=== PATIENT | female | born 1985 | race Two or more races ===

== ENCOUNTER 2019-03-07 19:28 | Emergency (ER) | payer OTHER ==
[~2019-03-07] VITALS: Ht 167.6 cm; Wt 54.4 kg
[~2019-03-07 19:28] MED LIST: CORGARD20 M1; KETO10TA2 PO; MEDROL4 MG
== END 2019-03-07 20:44 | disposition home or self-care (01) ==
LOC: ER 19:28
DX: L02.416 Cutaneous abscess of left lower limb (principal)

== ENCOUNTER 2019-05-03 10:14 | Emergency (ER) | payer OTHER ==
[~2019-05-03] VITALS: Ht 167.6 cm; Wt 54.4 kg
== END 2019-05-03 15:50 | disposition home or self-care (01) ==
LOC: ER 10:14
DX: B33.8 Other specified viral diseases (principal); B96.0 Mycoplasma pneumoniae [M. pneumoniae] as the cause of diseases classified elsewhere

== ENCOUNTER 2023-06-06 22:15 | Emergency (ER) | payer OTHER ==
[~2023-06-06] VITALS: Ht 167.6 cm; Wt 58.1 kg
[2023-06-06] MEDS ORDERED: HORIZANT300 MG (22:26)
[2023-06-06] MEDS ORDERED: KETOROLAC TROMETHAMINE 30 MG VIAL IM STA (22:57)
[2023-06-06] MEDS ORDERED: DEXAMETHASONE SODIUM PHOSPHATE 4 MG/ML VIAL IM STA (22:57)
[2023-06-06] MEDS ORDERED: 0.9 % SODIUM CHLORIDE 500 ML IV STA (23:48)
[2023-06-07 00:17] LABS: HEMATOCRIT 35.7 % (36.0-45.00); HEMOGLOBIN 12.1 g/dL (12.0-15.00); MEAN CELL VOLUME 81.5 fL (80.00-100.00); MEAN CORPUSCULAR HEMOGLOBIN 27.6 pg (27.00-32.0); MEAN CORPUSCULAR HGB CONC 33.9 g/dl (32.0-36.0); PLATELET COUNT 286 K/uL (150-450); RED BLOOD COUNT 4.38 M/uL (4.00-6.00); RED CELL DISTRIBUTION WIDTH 14.3 % (11.5-14.5)
[2023-06-07 01:01] LABS: ALBUMIN 3.9 gm/dL (3.4-5.0); BILIRUBIN TOTAL 0.21 mg/dL (0.3-1.2); CREATININE SERUM 0.96 mg/dL (0.55-1.02); GFR 65.4; GLOBULINA 3.8 G/DL (2.4-3.5); POTASSIUM 4.23 mEq/L (3.5-5.1); TOTAL PROTEIN 7.7 gm/dL (6.4-8.2)
[2023-06-07 03:38] LABS: PH,URINE 6.5 (5.0-8.0); URINE APPEARANCE Clear; URINE BILIRRUBIN Negative (NEGATIVE); URINE BLOOD Small; URINE COLOR Yellow; URINE GLUCOSE Negative (NEGATIVE); URINE LEUKOCYTE Negative; URINE NITRATE Negative; URINE PROTEIN Negative (NEGATIVE)
[2023-06-07 03:42] LABS: URINE BACTERIA 784.8 uL (0.0-1933); URINE EPITHELIAL CELLS 34.1 uL (0.0-38.8); URINE RBC 110.9 uL (0.0-20.8); URINE WBC 9.2 uL (0.0-23.2)
[2023-06-07] MEDS ORDERED: ACETAMINOPHEN 500 MG GEL..CAP PO STA (04:02)
[2023-06-07] MEDS ORDERED: ORPHENADRINE CITRATE 30 MG/ML AMPUL IM STA (04:13)
[2023-06-07] MEDS ORDERED: MEDROLPACK PO (05:33)
[2023-06-07] MEDS ORDERED: NEURONTIN300 MG PO (05:33)
[2023-06-07] MEDS ORDERED: NORFLEX100MG PO (05:33)
== END 2023-06-07 05:44 ==
LOC: ER 22:15
PROVIDERS: General Practice
DX: A69.29 Other conditions associated with Lyme disease (principal); Z88.8 Allergy status to other drugs, medicaments and biological substances